=== PATIENT | male | born 1985 | race Caucasian/White ===

== ENCOUNTER 2018-04-04 10:36 | Emergency (ER) | payer OTHER ==
[~2018-04-04] VITALS: Ht 175.3 cm; Wt 99.8 kg
== END 2018-04-04 21:52 | disposition home or self-care (01) ==
LOC: ER 10:36 → CPU-OBS 10:42 → ER 10:42
DX: R07.89 Other chest pain (principal)
CPT/HCPCS: G0378; G0379; 93005